=== PATIENT | male | born 1995 | race Caucasian/White ===

== ENCOUNTER 2017-03-28 15:45 | Emergency (ER) | payer MEDICAID, OTHER ==
[~2017-03-28] VITALS: Ht 193 cm; Wt 75.0 kg
[~2017-03-28 15:45] MED LIST: IBUP600T26 PO; ORPH100T PO
[2017-03-28 15:54] VITALS: BP 115/69; PULSE 90; RESP 18; TEMP 98.2; O2SAT 98
[2017-03-28] MEDS ORDERED: SODIUM CHLOR 0.9% 1000 ML INJ 1,000 ML IV SCH (16:00)
[2017-03-28 16:01] VITALS: O2SAT 98
--- NOTE | 2017-03-28 16:04 | PD ---
HPI Chief Complaint: Chest Pain Time Seen by Provider: 15:54 Travel History International Travel<30 days: No Contact w/Intl Traveler<30days: No Traveled to known affect area: No History of Present Illness HPI 22-year-old male complains of chest pain. Patient states that he has intermittent abdominal cramping with diarrhea for the past week. Patient states that the abdominal pain and diarrhea got better. Patient states that he woke up this morning with left sided chest pain. Patient states the pain aching pain with occasionally sharp pain without radiation. Patient states that the pain is worse with deep breathing. Patient denies palpitation nausea vomiting. Patient denies diaphoresis. Patient denies any headache. Patient denies any shortness of breath. Patient denies dysuria or frequency. Patient denies any fever chills. Patient denies any history of CAD. Patient denies history hypertension, diabetes, hyperlipidemia. Patient is a smoker. Patient denies any alcohol abuse. Patient states that he smoked pot once in a while. Patient denies any other illicit drug abuse. On a scale of 1-10 the pain is a 7. PFSH Past Medical History Diminished Hearing: No Immunizations Current: Yes Migraines: Yes Past Surgical History Surgical History: No Previous Surgery Social History Alcohol Use: Yes ("RARELY") Tobacco Use: Yes (1 PPD) Substance Use: No Allergies-Medications (Allergen,Severity, Reaction): Coded Allergies: amoxicillin (Unverified Allergy, Unknown, HIVES, 03/28/17) Reported Meds & Prescriptions Reported Meds & Active Scripts Active Review of Systems General / Constitutional: No: Fever Eyes: No: Visual changes HENT: No: Headaches Cardiovascular: Positive: Chest Pain or Discomfort Respiratory: No: Shortness of Breath Gastrointestinal: No: Abdominal Pain Genitourinary: No: Dysuria Musculoskeletal: No: Pain Skin: No Rash Neurologic: No: Weakness Psychiatric: No: Depression Endocrine: No: Polydipsia Hematologic/Lymphatic: No: Easy Bruising Physical Exam Narrative GENERAL: Well-nourished, well-developed patient. SKIN: Focused skin assessment warm/dry. HEAD: Normocephalic. EYES: No scleral icterus. No injection or drainage. NECK: Supple, trachea midline. No JVD or lymphadenopathy. CARDIOVASCULAR: Regular rate and rhythm without murmurs, gallops, or rubs. RESPIRATORY: Breath sounds equal bilaterally. No accessory muscle use. GASTROINTESTINAL: Abdomen soft, nondistended. Patient has mild tenderness on palpation upper abdomen. No rebound tenderness. No mass. MUSCULOSKELETAL: No cyanosis, or edema. BACK: Nontender without obvious deformity. No CVA tenderness. Neurologic exam normal. Data Data Last Documented VS Vital Signs Date Time Temp Pulse Resp B/P (MAP) Pulse Ox O2 Delivery O2 Flow Rate FiO2 03/28/17 16:01 98 Room Air 03/28/17 15:54 98.2 90 18 115/69 (84) Orders Orders Electrocardiogram (03/28/17 15:55) Complete Blood Count With Diff (03/28/17 15:55) Comprehensive Metabolic Panel (03/28/17 15:55) Creatine Kinase (Cpk) (03/28/17 15:55) Troponin I (03/28/17 15:55) Prothrombin Time / Inr (Pt) (03/28/17 15:55) Act Partial Throm Time (Ptt) (03/28/17 15:55) Lipase (03/28/17 15:55) Urinalysis - C+S If Indicated (03/28/17 15:55) Chest, Single Ap (03/28/17 15:55) Iv Access Insert/Monitor (03/28/17 15:55) Ecg Monitoring (03/28/17 15:55) Oximetry (03/28/17 15:55) Drug Screen, Random Urine (03/28/17 15:55) Sodium Chlor 0.9% 1000 Ml Inj (Ns 1000 M (03/28/17 16:00) Labs Laboratory Tests Test 03/28/17 16:00 03/28/17 16:10 03/28/17 16:45 Prothrombin Time 11.3 SEC Prothromb Time International Ratio 1.0 RATIO Activated Partial Thromboplast Time 30.1 SEC Blood Urea Nitrogen 14 MG/DL Creatinine 0.98 MG/DL Random Glucose 85 MG/DL Total Protein 7.5 GM/DL Albumin 4.2 GM/DL Calcium Level 8.1 MG/DL Alkaline Phosphatase 63 U/L Aspartate Amino Transf (AST/SGOT) 20 U/L Alanine Aminotransferase (ALT/SGPT) 20 U/L Total Bilirubin 0.5 MG/DL Sodium Level 136 MEQ/L Potassium Level 3.6 MEQ/L Chloride Level 103 MEQ/L Carbon Dioxide Level 26.9 MEQ/L Anion Gap 6 MEQ/L Estimat Glomerular Filtration Rate 94 ML/MIN Total Creatine Kinase 156 U/L Troponin I LESS THAN 0.02 NG/ML Lipase 125 U/L White Blood Count 7.2 TH/MM3 Red Blood Count 4.39 MIL/MM3 Hemoglobin 13.9 GM/DL Hematocrit 40.1 % Mean Corpuscular Volume 91.2 FL Mean Corpuscular Hemoglobin 31.6 PG Mean Corpuscular Hemoglobin Concent 34.7 % Red Cell Distribution Width 11.9 % Platelet Count 142 TH/MM3 Mean Platelet Volume 7.8 FL Neutrophils (%) (Auto) 83.8 % Lymphocytes (%) (Auto) 6.4 % Monocytes (%) (Auto) 8.6 % Eosinophils (%) (Auto) 0.9 % Basophils (%) (Auto) 0.3 % Neutrophils # (Auto) 6.0 TH/MM3 Lymphocytes # (Auto) 0.5 TH/MM3 Monocytes # (Auto) 0.6 TH/MM3 Eosinophils # (Auto) 0.1 TH/MM3 Basophils # (Auto) 0.0 TH/MM3 CBC Comment DIFF FINAL Differential Comment Urine Collection Type CLEAN CATCH Urine Color YELLOW Urine Turbidity CLEAR Urine pH 7.0 Urine Specific [place] 1.007 Urine Protein NEG mg/dL Urine Glucose (UA) NEG mg/dL Urine Ketones NEG mg/dL Urine Occult Blood NEG Urine Nitrite NEG Urine Bilirubin NEG Urine Leukocyte Esterase NEG Urine RBC 0-3 /hpf Urine Squamous Epithelial Cells 0-5 /hpf Microscopic Urinalysis Comment CULT NOT INDICATED Urine Collection Time 16:45 Urine Opiates Screen NEG Urine Barbiturates Screen NEG Urine Amphetamines Screen NEG Urine Benzodiazepines Screen NEG Urine Cocaine Screen NEG Urine Cannabinoids Screen NEG [facility] Medical Decision Making Medical Screen Exam Complete: Yes Emergency Medical Condition: Yes Interpretation(s) Last Impressions Chest X-Ray 03/28/17 3590 Signed Impressions: Service Date/Time: Tuesday, March 28, 2017 16:12 - CONCLUSION: No acute disease. Juan Gonzalez Jr., MD 1736 PM. CBC within normal limit. CMP within normal limit. Cardiac enzymes are normal. Urine drug screen negative. UA is negative. Differential Diagnosis Differential diagnosis including musculoskeletal, angina, DE, PE, pneumothorax Narrative Course 22-year-old male with left-sided chest pain. Patient also has intermittent abdominal cramping with diarrhea earlier in the week. Diagnosis Primary Impression: Atypical chest pain Patient Instructions: General Instructions Additional Instructions: Tylenol Advil for aching pain. Encourage by mouth fluid. Follow-up with personal physician. Return immediately if increasing chest pain or shortness of breath. Med/Other Pt SpecificInfo: No Meds Exist/No RX given Scripts No Active Prescriptions or Reported Meds Disposition: 01 DISCHARGE HOME Condition: Stable Jay Jay Nieves MD Mar 28, 2017 16:04
[2017-03-28 16:11] LABS: BASOPHIL % 0.3 % (0.0-2.0); EOSINOPHIL # 0.1 TH/MM3 (0-0.4); EOSINOPHIL % 0.9 % (0.0-4.0); HEMATOCRIT 40.1 % (39.0-51.0); LYMPH % 6.4 % (9.0-44.0); LYMPHOCYTE # 0.5 TH/MM3 (1.0-4.8); MEAN CELL VOLUME 91.2 FL (80.0-100.0); MEAN CORPUSCULAR HEMOGLOBIN 31.6 PG (27.0-34.0); MEAN CORPUSCULAR HGB CONC 34.7 % (32.0-36.0); MONO % 8.6 % (0.0-8.0); NEUT % 83.8 % (16.0-70.0); PLATELET COUNT 142 TH/MM3 (150-450); RED BLOOD COUNT 4.39 MIL/MM3 (4.50-5.90); RED CELL DISTRIBUTION WIDTH 11.9 % (11.6-17.2); WHITE BLOOD COUNT 7.2 TH/MM3 (4.0-11.0)
[2017-03-28 16:13] LABS: HEMO FLAGS DIFF FINAL
[2017-03-28 16:22] LABS: CHLORIDE 103 MEQ/L (98-107); POTASSIUM 3.6 MEQ/L (3.5-5.1); SODIUM (NA) 136 MEQ/L (136-145)
--- NOTE | 2017-03-28 16:23 | RADRPT ---
EXAM DATE/TIME: 03/28/2017 16:12 [facility] COMPARISON: No previous studies available for comparison. INDICATIONS : Chest pain. MEDICAL HISTORY : None. SURGICAL HISTORY : None. ENCOUNTER: Initial ACUITY: 1 day PAIN SCORE: 7/10 LOCATION: Bilateral chest FINDINGS: A single view of the chest demonstrates the lungs to be symmetrically aerated without evidence of mas s, infiltrate or effusion. The cardiomediastinal contours are unremarkable. Osseous structures are intact. CONCLUSION: No acute disease. Juan Gonzalez Jr., MD on March 28, 2017 at 16:20 Board Certified Radiologist. This report was verified electronically.
[2017-03-28 16:26] LABS: ANION GAP 6 MEQ/L (5-15); BICARBONATE 26.9 MEQ/L (21.0-32.0)
[2017-03-28 16:27] LABS: BLOOD UREA NITROGEN 14 MG/DL (7-18)
[2017-03-28 16:29] LABS: ALT (GPT) 20 U/L (12-78); AST (GOT) 20 U/L (15-37); GLOMERULAR FILTRATION RATE 94 ML/MIN (>89)
[2017-03-28 16:31] LABS: TOTAL BILIRUBIN ADULT 0.5 MG/DL (0.2-1.0)
[2017-03-28 16:32] LABS: ALKALINE PHOSPHATASE 63 U/L (45-117); CREATINE KINASE 156 U/L (39-308)
[2017-03-28 16:59] LABS: BLOOD, URINE NEG (NEG); GLUCOSE,URINE NEG (NEG); KETONE, URINE NEG (NEG); NITRITE,URINE NEG (NEG)
[2017-03-28 17:03] LABS: METHOD OF COLLECTION CLEAN CATCH
[2017-03-28 17:04] LABS: URINE COLOR YELLOW (YELLW/STRAW)
[2017-03-28 17:05] LABS: COMMENT (UR) CULT NOT INDICATED; CULTURE IF INDICATED CULT NOT INDICATED; RBC, URINE 0-3 /hpf (0-3); SQUAMOUS EPITHELIAL CELL URINE 0-5 /hpf (0-5)
[2017-03-28 17:19] LABS: APTT (PATIENT) 30.1 SEC (24.3-30.1); PROTHROMBIN TIME - PATIENT 11.3 SEC (9.8-11.6)
[2017-03-28] MEDS ORDERED: SODIUM CHLOR 0.9% 1000 ML INJ 1,000 ML IV ONE (17:45)
--- NOTE | 2017-03-29 09:49 | EKG ---
Date Performed: 03/28/2017 Time Performed: 15:53:09 PTAGE: 22 years EKG: Sinus rhythm NORMAL ECG INTERPRETATION BASED ON A DEFAULT AGE OF 38 YEARS NO PREVIOUS TRACING DOCTOR: Ryan Byrd Interpretating Date/Time 03/29/2017 09:47:49
== END 2017-03-28 19:09 | disposition home or self-care (01) ==
LOC: PHED 15:45
DX: R07.89 Other chest pain (principal); R10.9 Unspecified abdominal pain; R19.7 Diarrhea, unspecified; F17.200 Nicotine dependence, unspecified, uncomplicated
CPT/HCPCS: 71010; 80053; 80307; 81001; 82550; 83690; 84484; 85025; 85610; 85730; 93005; 96360; 96361; 99285; J7030

== ENCOUNTER 2018-01-04 11:50 | Emergency (ER) | payer SELFPAY ==
[~2018-01-04] VITALS: Ht 195.6 cm; Wt 70.0 kg
[2018-01-04 11:51] VITALS: BP 127/59; PULSE 98; RESP 16; TEMP 102.1; O2SAT 99
[2018-01-04] MEDS ORDERED: SODIUM CHLOR 0.9% 1000 ML INJ 1,000 ML IV ONE (12:15)
[2018-01-04] MEDS ORDERED: IBUPROFEN 600 MG TAB PO ONE (12:15)
[2018-01-04] MEDS ORDERED: AZITHROMYCIN PWD FOR SUSP 1 GM PACKET PO ONE (12:15)
[2018-01-04] MEDS ORDERED: cefTRIAXone INJ 1,000 MG in SODIUM CHLORIDE 0.9% INJ 100 ML IV ONE (12:15)
[2018-01-04] MEDS ORDERED: ACETAMINOPHEN 325 MG TAB PO ONE ×2 (12:15)
--- NOTE | 2018-01-04 12:17 | PD ---
HPI Chief Complaint: Lump, Cyst, Hernia Time Seen by Provider: 12:01 Travel History International Travel<30 days: No Contact w/Intl Traveler<30days: No Traveled to known affect area: No History of Present Illness HPI This patient complains of painful lump in his left groin. Duration 3 days. Severity is moderate. He has fever. He denies respiratory symptoms such as cough congestion shortness of breath. He has had some diarrhea. Denies urethral discharge or penile lesions. Denies HIV or IV drug use. no alleviating factors. No exacerbating factors. PFSH Past Medical History Medical History: Denies Significant Hx Diminished Hearing: No Immunizations Current: Yes Migraines: Yes Tetanus Vaccination: > 5 Years Influenza Vaccination: No Social History Alcohol Use: Yes ("RARELY") Tobacco Use: Yes (1 PPD) Substance Use: Yes (mj) Allergies-Medications (Allergen,Severity, Reaction): Coded Allergies: amoxicillin (Unverified Allergy, Unknown, HIVES, 01/04/18) Reported Meds & Prescriptions Reported Meds & Active Scripts Active Doxycycline Hyclate DR (Doxycycline Hyclate) 100 Mg Tab 100 Mg PO BID 10 Days Review of Systems General / Constitutional: Positive: Fever, Chills Eyes: No: Visual changes HENT: No: Headaches Cardiovascular: No: Chest Pain or Discomfort Respiratory: No: Shortness of Breath Gastrointestinal: Positive: Diarrhea, No: Abdominal Pain Genitourinary: No: Dysuria Musculoskeletal: Positive: Pain Skin: No Rash Neurologic: No: Weakness Psychiatric: No: Depression Endocrine: No: Polydipsia Hematologic/Lymphatic: No: Easy Bruising Physical Exam Narrative GENERAL: Well-nourished, well-developed patient with fever and groin pain . SKIN: Focused skin assessment reveals no rash and nodules. Skin is Warm and dry. HEAD: Atraumatic. Normocephalic. EYES: Pupils equal and round. No scleral icterus. No injection or drainage. ENT: No nasal bleeding or discharge. Mucous membranes pink and moist. Throat clear NECK: Trachea midline. No JVD. No meningeal signs CARDIOVASCULAR: Regular rate and rhythm. No murmur appreciated. RESPIRATORY: No accessory muscle use. Clear to auscultation. Breath sounds equal bilaterally. GASTROINTESTINAL: Abdomen soft, non-tender, nondistended. Hepatic and splenic margins not palpable. MUSCULOSKELETAL: No obvious deformities. No clubbing. No cyanosis. No edema. NEUROLOGICAL: Awake and alert. No obvious cranial nerve deficits. Motor grossly within normal limits. Normal speech. PSYCHIATRIC: Appropriate mood and affect; insight and judgment normal. Groin: No penile lesions. No testicular redness or tenderness or swelling. No urethral discharge seen. He does have bilateral inguinal lymphadenopathy. However the area that concerns him most is large and tender left groin lymph node. There is some erythema there as well Data Data Last Documented VS Vital Signs Date Time Temp Pulse Resp B/P (MAP) Pulse Ox O2 Delivery O2 Flow Rate FiO2 01/04/18 12:47 102.1 94 20 125/66 (85) 97 Room Air Orders Orders Complete Blood Count With Diff (01/04/18 12:09) Comprehensive Metabolic Panel (01/04/18 12:09) Urinalysis - C+S If Indicated (01/04/18 12:09) Blood Culture (01/04/18 12:09) Chest, Single Ap (01/04/18 12:09) Ecg Monitoring (01/04/18 12:09) Iv Access Insert/Monitor (01/04/18 12:09) Acetaminophen (Tylenol) (01/04/18 12:15) Acetaminophen (Tylenol) (01/04/18 12:15) Ibuprofen (Motrin) (01/04/18 12:15) Sodium Chlor 0.9% 1000 Ml Inj (Ns 1000 M (01/04/18 12:15) Ceftriaxone Inj (Rocephin Inj) (01/04/18 12:15) Azithromycin Powd Pack (Zithromax Powd P (01/04/18 12:15) Gc And Chlamydia Pcr (01/04/18 12:13) Labs Laboratory Tests Test 01/04/18 12:22 White Blood Count 8.4 TH/MM3 Red Blood Count 4.33 MIL/MM3 Hemoglobin 13.3 GM/DL Hematocrit 40.1 % Mean Corpuscular Volume 92.6 FL Mean Corpuscular Hemoglobin 30.8 PG Mean Corpuscular Hemoglobin Concent 33.3 % Red Cell Distribution Width 11.5 % Platelet Count 154 TH/MM3 Mean Platelet Volume 7.9 FL Neutrophils (%) (Auto) 84.3 % Lymphocytes (%) (Auto) 4.0 % Monocytes (%) (Auto) 11.3 % Eosinophils (%) (Auto) 0.1 % Basophils (%) (Auto) 0.3 % Neutrophils # (Auto) 7.2 TH/MM3 Lymphocytes # (Auto) 0.3 TH/MM3 Monocytes # (Auto) 0.9 TH/MM3 Eosinophils # (Auto) 0.0 TH/MM3 Basophils # (Auto) 0.0 TH/MM3 CBC Comment DIFF FINAL Differential Comment Urine Collection Type CATH Urine Color YELLOW Urine Turbidity CLEAR Urine pH 8.5 Urine Specific [place] 1.015 Urine Protein TRACE mg/dL Urine Glucose (UA) NEG mg/dL Urine Ketones NEG mg/dL Urine Occult Blood NEG Urine Nitrite NEG Urine Bilirubin NEG Urine Urobilinogen 0.2 MG/DL Urine Leukocyte Esterase NEG Urine RBC 0-3 /hpf Urine Squamous Epithelial Cells 0-5 /hpf Microscopic Urinalysis Comment CATH-CULT NOT IND Blood Urea Nitrogen 11 MG/DL Creatinine 0.94 MG/DL Random Glucose 98 MG/DL Total Protein 7.9 GM/DL Albumin 4.8 GM/DL Calcium Level 9.2 MG/DL Alkaline Phosphatase 68 U/L Aspartate Amino Transf (AST/SGOT) 19 U/L Alanine Aminotransferase (ALT/SGPT) 25 U/L Total Bilirubin 0.7 MG/DL Sodium Level 135 MEQ/L Potassium Level 3.9 MEQ/L Chloride Level 103 MEQ/L Carbon Dioxide Level 24.4 MEQ/L Anion Gap 8 MEQ/L Estimat Glomerular Filtration Rate 99 ML/MIN [facility] Medical Decision Making Medical Screen Exam Complete: Yes Emergency Medical Condition: Yes Medical Record Reviewed: Yes Differential Diagnosis Sepsis, bacteremia, STD, UTI Narrative Course I have reviewed the patient's electronic medical record. Patient is some infectious process going on. Not entirely clear what at initial evaluation. He has fever and inguinal lymphadenopathy. Urinalysis is clean CBC is normal Metabolic profile is normal I gave him a dose of IV Rocephin and 2 g oral Zithromax GC and Chlamydia PCR will be done on urine There is no urethral discharge to evaluate He is soft benign nontender abdomen. gave him a dose of Tylenol Motrin for fever and 1 L normal saline IV bolus On recheck blood pressure 120s systolic I do not think he needs hospitalization. He has something infectious going on. I am writing him 10 days of doxycycline If he does not see improvement in 48 hours I have advised him to return for a recheck. He should try to seek primary care follow-up as well Diagnosis Primary Impression: Febrile illness, acute Additional Impression: Inguinal lymphadenopathy Additional Instructions: The patient was advised to follow up with their physician and return if they worsen. Get a recheck if no improvement in 48 hours Med/Other Pt SpecificInfo: Prescription(s) given Scripts Doxycycline Hyclate DR (Doxycycline Hyclate DR) 100 Mg Tab 100 MG PO BID for Infection for 10 Days, #20 TAB 0 Refills Prov: Kang Reyes MD 01/04/18 Disposition: 01 DISCHARGE HOME Condition: Stable Kang Reyes MD Jan 04, 2018 12:17
[2018-01-04 12:30] LABS: BILIRUBIN, URINE NEG (NEG); BLOOD, URINE NEG (NEG); GLUCOSE,URINE NEG (NEG); KETONE, URINE NEG (NEG); NITRITE,URINE NEG (NEG); PH, URINE 8.5 (5.0-8.5); URINE COLOR YELLOW (YELLW/STRAW); URINE LEUKOCYTE ESTERASE NEG (NEG)
[2018-01-04 12:31] LABS: AUTOMATED NEUTROPHIL # 7.2 TH/MM3 (1.8-7.7); BASOPHIL % 0.3 % (0.0-2.0); EOSINOPHIL % 0.1 % (0.0-4.0); HEMATOCRIT 40.1 % (39.0-51.0); HEMOGLOBIN 13.3 GM/DL (13.0-17.0); LYMPHOCYTE # 0.3 TH/MM3 (1.0-4.8); MEAN CELL VOLUME 92.6 FL (80.0-100.0); MEAN CORPUSCULAR HEMOGLOBIN 30.8 PG (27.0-34.0); MEAN CORPUSCULAR HGB CONC 33.3 % (32.0-36.0); MEAN PLATELET VOLUME 7.9 FL (7.0-11.0); MONO % 11.3 % (0.0-8.0); MONOCYTE # 0.9 TH/MM3 (0-0.9); NEUT % 84.3 % (16.0-70.0); PLATELET COUNT 154 TH/MM3 (150-450); RED BLOOD COUNT 4.33 MIL/MM3 (4.50-5.90); RED CELL DISTRIBUTION WIDTH 11.5 % (11.6-17.2); WHITE BLOOD COUNT 8.4 TH/MM3 (4.0-11.0)
[2018-01-04 12:41] LABS: RBC, URINE 0-3 /hpf (0-3); SQUAMOUS EPITHELIAL CELL URINE 0-5 /hpf (0-5)
--- NOTE | 2018-01-04 12:46 | RADRPT ---
EXAM DATE: 01/04/2018 12:39 PM EDT AGE/SEX: 22 years / Male INDICATIONS: Fever. Cough. CLINICAL DATA: This is the patient's initial encounter. Patient reports that signs and symptoms have been present for 3 days and indicates a pain score of 5/10. MEDICAL/SURGICAL HISTORY: None. None. COMPARISON: [facility], CHEST SINGLE AP, 03/28/2017. . FINDINGS: A single AP view of the chest demonstrates the lungs to be symmetrically aerated without evidence of mass, infiltrate or effusion. The cardiomediastinal contours are unremarkable. Osseous structures a re intact. CONCLUSION: No active disease. Electronically signed by: John Luna MD 01/04/2018 12:45 PM EDT
[2018-01-04 12:47] VITALS: BP 125/66; PULSE 94; RESP 20; TEMP 102.1; O2SAT 97
[2018-01-04 12:49] LABS: CHLORIDE 103 MEQ/L (98-107); SODIUM (NA) 135 MEQ/L (136-145)
[2018-01-04 12:53] LABS: ALBUMIN 4.8 GM/DL (3.4-5.0); BICARBONATE 24.4 MEQ/L (21.0-32.0); BLOOD UREA NITROGEN 11 MG/DL (7-18); CALCIUM 9.2 MG/DL (8.5-10.1); GLUCOSE,RANDOM 98 MG/DL (74-106)
[2018-01-04 12:56] LABS: ALT (GPT) 25 U/L (12-78); AST (GOT) 19 U/L (15-37); CREATININE 0.94 MG/DL (0.60-1.30); GLOMERULAR FILTRATION RATE 99 ML/MIN (>89)
[2018-01-04 12:58] LABS: TOTAL BILIRUBIN ADULT 0.7 MG/DL (0.2-1.0); TOTAL PROTEIN 7.9 GM/DL (6.4-8.2)
[2018-01-04 12:59] LABS: ALKALINE PHOSPHATASE 68 U/L (45-117)
[2018-01-04] MEDS ORDERED: DOXY1TAB6 PO (13:14)
[2018-01-04 13:15] VITALS: BP 125/57; PULSE 92; RESP 16; TEMP 99.9; O2SAT 98
[2018-01-04 14:25] VITALS: BP 124/54
== END 2018-01-04 14:43 | disposition home or self-care (01) ==
LOC: PHED 11:50
DX: R50.9 Fever, unspecified (principal); R59.1 Generalized enlarged lymph nodes; R19.7 Diarrhea, unspecified; F17.200 Nicotine dependence, unspecified, uncomplicated; Z88.0 Allergy status to penicillin
CPT/HCPCS: 71045; 80053; 81001; 85025; 87040; 87491; 87591; 96365; 99284; J0696; J7030